=== PATIENT | female | born 1985 | race Hispanic/Latino ===

== ENCOUNTER 2020-05-06 10:03 | Outpatient (CLI) | payer MEDICAID ==
[2020-05-06 10:27] VITALS: BP 112/70
[2020-05-06] MEDS ORDERED: LACTATED RINGERS 500 ML IV ONE (11:08)
[2020-05-06] MEDS ORDERED: ONDANSETRON 4 MG/2 ML INJ IV ONE (11:10)
== END 2020-05-06 12:33 | disposition home or self-care (01) ==
LOC: SPVWC 10:03 → APU 10:04 → SPVWC 12:33
PROVIDERS: ATTEND Obstetrics & Gynecology
DX: O99.283 Endocrine, nutritional and metabolic diseases complicating pregnancy, third trimester (principal); E86.0 Dehydration; O47.03 False labor before 37 completed weeks of gestation, third trimester; Z3A.31 31 weeks gestation of pregnancy; Z87.891 Personal history of nicotine dependence
CPT/HCPCS: 59025; 96374; J2405; J7120; 96360

== ENCOUNTER 2020-06-01 14:42 | Outpatient (CLI) | payer MEDICAID ==
[2020-06-01 15:53] VITALS: BP 108/66
[2020-06-01] MEDS ORDERED: LACTATED RINGERS 1,000 ML IV SCH (16:00)
[2020-06-01 16:35] LABS: Bilirubin,Urine NEG (Negative); Blood,Urine NEG (Negative); Color,Urine Yellow (Yellow); Mucus,Urine FEW /HPF; Protein,Urine <15 mg/dL mg/dL (Negative); WBC,Urine < 1.0 /HPF (0.0-6.0)
[2020-06-01 17:33] LABS: Amphetamine Screen,Urine PRESUMPTIVE NEGATIVE; Benzodiazepines Screen,Urine PRESUMPTIVE NEGATIVE; Cannabinoid Screen,Urine PRESUMPTIVE NEGATIVE; Cocaine Screen,Urine PRESUMPTIVE NEGATIVE; Methadone Screen,Urine PRESUMPTIVE NEGATIVE; Opiate Screen,Urine PRESUMPTIVE NEGATIVE
--- NOTE | 2020-06-01 18:01 | Ultrasound Report ---
ULTRASOUND OBSTETRIC LIMITED ULTRASOUND BIOPHYSICAL PROFILE INDICATION / CLINICAL INFORMATION: well being. Clinical Gestational Age (GA) in weeks, days: 35, 0 TECHNIQUE: Transabdominal. COMPARISON: None available. FINDINGS: BREATHING MOVEMENT = 2 GROSS BODY MOVEMENT = 2 TONE = 2 QUALITATIVE AMNIOTIC FLUID VOLUME = 2 TOTAL BIOPHYSICAL SCORE = 8/8 HEART RATE (beats per minute): 147 PRESENTATION: Cephalic. ADDITIONAL FINDINGS: None. IMPRESSION: 1. Biophysical Score = 8/8 Signer Name: Sylvie Romero MD Signed: 06/01/2020 5:56 PM Workstation Name: [id number]
== END 2020-06-01 18:01 | disposition home or self-care (01) ==
LOC: TRG 14:42 → APU 15:01 → TRG 18:01
PROVIDERS: ATTEND Obstetrics & Gynecology
DX: Z34.93 Encounter for supervision of normal pregnancy, unspecified, third trimester (principal); Z3A.35 35 weeks gestation of pregnancy
CPT/HCPCS: 59025; 76819; 80307; 81001